=== PATIENT | male | born 1935 ===

== ENCOUNTER 2020-01-12 17:32 | Outpatient (CLI) | payer MEDICARE, SELFPAY ==
[2020-01-12 17:49] LABS: Basophils % 0.3 %; Eosinophils # 0.7 10^3/uL (0.0-0.8); Eosinophils % 7.4 %; Hematocrit 26.4 % (42.0-52.0); Hemoglobin 8.2 g/dL (11.7-16.6); Lymphocytes # 2.9 10^3/uL (0.8-4.8); Mean Corpuscular HGB Conc 31.1 g/dL (30.0-36.0); Mean Corpuscular Hemoglobin 28.5 pg (28.0-34.0); Mean Corpuscular Volume 91.7 fL (80-94); Mean Platelet Volume 11.3 fL (7.4-10.4); Monocytes # 0.8 10^3/uL (0.2-0.9); Monocytes % 8.9 %; Neutrophils # 4.8 10^3/uL (1.8-7.7); Neutrophils % 52.2 %; Nucleated Red Blood Cells % 0 %; Platelet Count 297 10^3/cmm (130-400); Red Blood Count 2.88 10^6/uL (4.1-5.3); Red Cell Distribution Width 16.8 % (12.1-15.1); White Blood Count 9.2 10^3/uL (4.0-10.0)
[2020-01-13 02:00] LABS: Alanine Aminotransferase 11 U/L (0-41); Albumin Level 3.6 g/dL (3.5-5.2); Alkaline Phosphatase 149 IU/L (40-130); Anion Gap 20.7 (5-19); Aspartate Amino Transferase 19 U/L (0-40); Blood Urea Nitrogen 38 mg/dL (8-23); Calcium 9.7 mg/dL (8.5-10.5); Carbon Dioxide 26 mmol/L (22-29); Chloride 97 mmol/L (98-107); Globulin 4.1 g/dL (1.3-4.6); Glucose 118 mg/dL (65-115); NT Pro B Type Natriuretic Pept 2051 pg/mL (0-450); Potassium 5.7 mmol/L (3.5-5.1); Sodium 138 mmol/L (136-145); Total Bilirubin 0.5 mg/dL (0.15-1.2); Total Protein 7.7 g/dL (6.6-8.7)
== END 2020-01-12 17:33 | disposition home or self-care (01) ==
LOC: LAB 17:39
PROVIDERS: Family Provider Nurse Practitioner; PCP Nurse Practitioner; Visit Provider Internal Medicine Medical Oncology
DX: I50.9 Heart failure, unspecified (principal)
CPT/HCPCS: 80053; 83880; 85025

== ENCOUNTER 2020-01-18 14:59 | Outpatient (CLI) | payer MEDICARE, SELFPAY ==
[2020-01-18 16:39] LABS: Basophils % 0.3 %; Eosinophils # 0.6 10^3/uL (0.0-0.8); Eosinophils % 7.2 %; Hematocrit 30.5 % (42.0-52.0); Hemoglobin 9.4 g/dL (11.7-16.6); Lymphocytes # 2.5 10^3/uL (0.8-4.8); Lymphocytes % 29.2 %; Mean Corpuscular HGB Conc 30.8 g/dL (30.0-36.0); Mean Corpuscular Hemoglobin 28.3 pg (28.0-34.0); Mean Corpuscular Volume 91.9 fL (80-94); Mean Platelet Volume 10.7 fL (7.4-10.4); Monocytes # 0.7 10^3/uL (0.2-0.9); Monocytes % 8.5 %; Neutrophils # 4.7 10^3/uL (1.8-7.7); Neutrophils % 54.6 %; Nucleated Red Blood Cells % 0 %; Platelet Count 284 10^3/cmm (130-400); Red Blood Count 3.32 10^6/uL (4.1-5.3); Red Cell Distribution Width 16.7 % (12.1-15.1); White Blood Count 8.7 10^3/uL (4.0-10.0)
[2020-01-18 18:14] LABS: Erythrocyte Sedimentation Rate 76 mm/hr (0-10)
[2020-01-18 18:30] LABS: Ferritin 275 ng/mL (30-400); Iron 56 ug/dL (59-158)
[2020-01-18 18:46] LABS: Vitamin B12 532 pg/mL (232-1245)
[2020-01-18 18:54] LABS: Percent Saturation 23.6 % (20-50); Total Iron Binding Capacity 237 mcg/dl; Unsaturated Iron Binding 181 ug/dL (112-347)
[2020-01-19 08:51] LABS: PROTEIN, TOTAL 7.5 g/dL (6.1-8.1)
[2020-01-19 11:32] LABS: ALBUMIN 3.4 g/dL (3.8-4.8); ALPHA 1 GLOBULIN 0.4 g/dL (0.2-0.3); ALPHA 2 GLOBULIN 1.1 g/dL (0.5-0.9); BETA 1 GLOBULIN 0.4 g/dL (0.4-0.6); BETA 2 GLOBULIN 0.5 g/dL (0.2-0.5); GAMMA GLOBULIN 1.7 g/dL (0.8-1.7)
[2020-01-19 19:10] LABS: KAPPA LIGHT CHAIN, FREE, SERUM 100.2 mg/L (3.3-19.4); LAMBDA LIGHT CHAIN, FREE, SERU 43.5 mg/L (5.7-26.3)
== END 2020-01-18 15:00 | disposition home or self-care (01) ==
LOC: ONCMED 15:02
PROVIDERS: Family Provider Nurse Practitioner; PCP Nurse Practitioner; Visit Provider Internal Medicine Medical Oncology
DX: D50.0 Iron deficiency anemia secondary to blood loss (chronic) (principal); I50.32 Chronic diastolic (congestive) heart failure; I11.0 Hypertensive heart disease with heart failure
CPT/HCPCS: 82607; 82728; 83540; 83550; 83883; 84155; 84165; 85025; 85651

== ENCOUNTER → 2020-04-19 10:36 | Outpatient (BNVA) | payer MEDICARE, SELFPAY | PROVIDERS: Family Provider Nurse Practitioner; PCP Nurse Practitioner; Visit Provider Nurse Practitioner | DX: I10 Essential (primary) hypertension (principal); E11.9 Type 2 diabetes mellitus without complications; K59.01 Slow transit constipation; C61 Malignant neoplasm of prostate; I50.9 Heart failure, unspecified; F41.9 Anxiety disorder, unspecified | CPT/HCPCS: 83036; 85025 ==

== ENCOUNTER 2020-07-15 08:21 | Outpatient (CLI) | payer MEDICARE, SELFPAY ==
--- NOTE | 2020-07-15 08:35 | CT_ITS ---
WS: [id number] CT NECK TECHNIQUE: Contrast-enhanced CT of the neck with coronal and sagittal reformatted images. CLINICAL INFORMATION: LOCALIZED SWELLING, MASS AND LUMP, NECK COMPARISON: None. DLP: 3151.[address] scans at [facility] use at least one of these dose optimization techniques: automat ed exposure control; mA and/or kV adjustment per patient size (includes targeted exams where dose is matched to clinical indication); or iterative reconstruction. FINDINGS: Prior postoperative changes scleral buckling procedure right eye. No evidence of intraorbital infecti on or cellulitis. No evidence of drainable fluid collection or abscess. Images of the tongue base are degraded due to beam hardening artifact from dental hardware. Parotid g lands and submandibular glands are normal. No evidence of supraglottic or glottic mass. Vallecula and piriform sinuses are normal. Normal parapharyngeal fat. No cervical lymphadenopathy. Partially visualized right pleural effusion. Prior sternotomy. Mastoid a ir cells and paranasal sinuses are well aerated. Moderate spondylitic changes cervical spine. Partial ly visualized chronic lacunar infarcts left jackson radiata. CT/CT neck w con* [id number] IMPRESSION: 1. Postoperative changes right scleral buckle procedure. 2. No evidence of intraorbital infection or cellulitis. 3. No evidence of supraglottic or glottic mass. 4. No cervical lymphadenopathy. 5. Partially visualized moderate right pleural effusion. 6. Moderate spondylitic changes cervical spine.
[2020-07-15 09:25] LABS: Blood Urea Nitrogen 19 mg/dL (8-23)
[2020-07-15] MEDS: iodixanol 320 mg/mL 100mL Btl IV (09:51)
== END 2020-07-15 08:22 | disposition home or self-care (01) ==
PROVIDERS: Family Provider Nurse Practitioner; PCP Nurse Practitioner; Visit Provider Specialist
DX: R22.1 Localized swelling, mass and lump, neck (principal); J90 Pleural effusion, not elsewhere classified
CPT/HCPCS: 70491; 82565; 84520; Q9967

== ENCOUNTER → 2020-07-26 09:44 | Outpatient (BNVA) | payer MEDICARE, SELFPAY | PROVIDERS: Family Provider Nurse Practitioner; PCP Nurse Practitioner; Visit Provider Nurse Practitioner | DX: E11.9 Type 2 diabetes mellitus without complications (principal); I10 Essential (primary) hypertension | CPT/HCPCS: 80053; 80061; 83036; 85025 ==

== ENCOUNTER 2020-08-05 10:33 | Emergency (ER) | payer MEDICARE, SELFPAY ==
[2020-08-05 10:41] VITALS: BP 137/85; PULSE 84; RESP 26; TEMP 36.7; O2SAT 91; BMI 33.9
--- NOTE | 2020-08-05 10:43 | XRR_ITS ---
PROCEDURE INFORMATION: Exam: XR Chest, 1 View Exam date and time: 08/05/2020 11:24 AM Age: 84 years old Clinical indication: Shortness of breath. TECHNIQUE: Imaging protocol: XR of the chest Views: 1 view. COMPARISON: CR Chest 1 [place] [id number] 10/23/2019 11:31 AM FINDINGS: Lungs: There is central pulmonary vascular congestion. There is bilateral perihilar haziness with bibasilar airspace disease which could be due to pulmonary edema. Pleural space: Small to moderate size bilateral pleural effusions, not significantly changed. No pneumothorax. Heart/Mediastinum: The cardiac silhouette is enlarged. The mediastinal contours are normal. Prior aortic valve replacement. Bones/joints: Prior median sternotomy. XR/XR chest 1V portable [id number] IMPRESSION: Findings likely due to congestive heart failure, not significantly changed.
--- NOTE | 2020-08-05 10:43 | ECG_ITS ---
[facility] Test Date: 2020-08-05 Pat Name: Chepe Cutler Department: Room: Gender: Male Percher: : 1935 Requested By: Pio Green Order Number: [id number] Jerome MD: Vincent Salazar M.D. Measurements Intervals [place] Rate: 94 P: AL: -1 QRS: -70 QRSD: 170 T: 84 QT: 405 QTc: 507 Interpretive Statements ATRIAL FIBRILLATION WITH ABERRANT CONDUCTION OR VENTRICULAR PREMATURE COMPLEXES RIGHT BUNDLE BRANCH BLOCK [120+ ms QRS DURATION, UPRIGHT V1, 40+ ms S IN I/aVL/V4/V5/V6] LEFT ANTERIOR FASCICULAR BLOCK [QRS AXIS <= -45, QR IN I, RS IN II] WARNING: DATA QUALITY MAY AFFECT INTERPRETATION Compared to ECG 10/23/2019 17:35:01 No significant changes Electronically Signed On 08-05-2020 19:05:34 CDT by Vincent Salazar M.D. [id number] f
[2020-08-05 10:58] LABS: ABG PCO2 43.8 mmHg (35-45); Alveolar-Arterial Oxygen Gradi 5.4 mmHg (5-10); Arterial Blood Gas Hematocrit 28.9 % (42-52); Base Excess ABG 1.8 mmol/L (-2.0-2.0); Blood Gas Allen Test Pos; Blood Gas Operator Identificat CAK; Blood Gas Sample Site Brachial, left; Blood Gas Sample Type Arterial; Carboxyhemoglobin 1.9 %THgb (0.4-20.1); HCO3 ABG 26.9 mmol/L (22-26); Ionized Calcium Level - ABG 1.2 mmol/L (1.1-1.4); Methemoglobin 0.9 % (0.4-1.5); Oxygen Device NC; Oxygen Saturation ABG 89.5; Potassium Level - ABG 3.5 mmol/L (3.5-5.0); Total Hemoglobin 9.4 g/dL (14-18)
--- NOTE | 2020-08-05 11:01 | W.ED.SOB ---
HPI - SOB/Dyspnea General: Chief Complaint: Shortness of Breath/Dyspnea Stated Complaint: SOB Time Seen by Provider: 08/05/20 10:48 History of Present Illness: HPI Narrative: 84-year-old male comes in the last several days he has been short of breath has been progressively worsening he denies any chest pain does have known history of coronary artery disease. He is not had a fever at all but he has had increasing cough. He was seen at an [facility] clinic this morning and his sats were exceptionally low with low 80s they declined ambulance transfer and her transferred via private vehicle. On arrival here his sats are in her low 80s on room air that improved to 88 to 91% with 6 L per nasal cannula. Patient has noted increased swelling in his legs as well. He also has systemic myalgias. Patient can answer some simple questions regarding his condition but any compounding questions involving for example timeframe of new symptoms he is unable to answer appropriately. MD elicited complaint: shortness of breath and cough Pertinent past history: COPD Onset (ago): day(s) Timing: constant Severity: severe Exacerbating factors: exertion, movement and coughing Relieving factors: oxygen, rest and upright position Known history of: congestive heart failure Associated symptoms: Reports chest congestion, cough, lightheadedness and palpitations; Deny chest pain, diaphoresis, dizziness, extremity pain, fever(s), hemoptysis, myalgias, nausea, orthopnea, paresthesias, polydipsia, polyuria, rash, sense of impending doom, syncope or vomiting Treatment prior to arrival: none Review of Systems Const: Denies: fever(s) or diaphoresis ENMT: Denies: throat pain, ear or mastoid pain, nasal discharge or nasal congestion Card: Reports: palpitations and lightheadedness; Denies: chest pain, syncope or orthopnea Resp: Reports: chest congestion; Denies: hemoptysis GI: Denies: nausea or vomiting : Denies: flank pain, dysuria, urinary frequency or urinary urgency Musc: Denies: extremity pain Skin/Breast: Denies: rash or pruritus Neuro: Denies: dizziness Endo: Denies: polyuria or polydipsia PFS ED PFSH: Medical History (Updated 08/05/20 @ 13:45 by Barrett Richter DO) Anxiety ASHD (arteriosclerotic heart disease) Atrial fibrillation CAD (coronary artery disease) CHF (congestive heart failure) Diabetes History of cerebrovascular accident (CVA) with residual deficit difficult swallowing [place] (hard of hearing) HTN (hypertension) Prostate cancer Slow transit constipation Surgical History History of cardioversion S/P AVR (aortic valve replacement) S/P CABG (coronary artery bypass graft) S/P Maze operation for atrial fibrillation Family History Other Diabetes Heart disease Social History Smoking and tobacco status: never smoked Second hand smoke exposure: No Smoking risk assessment/counseling performed?: No Alcohol intake: never Desire information about alcohol rehabilitation?: No Counseling given: No Desire information about substance/drug rehabilitation?: No Counseling given: No Caregiver/support person: Yes Lives independently: No Household members: spouse Housing: House Marital status: Current occupational status: retired Current occupational exposures/hazards: No History of recent travel: No Current gender identity: Male Physical Exam Const: GENERAL APPEARANCE: cooperative, comfortable and lethargic ORIENTATION/CONSCIOUSNESS: Yes awake, Yes confused and Yes lethargic; not oriented to person, not oriented to place and not oriented to time HENMT: COMMON NORMALS: normocephalic and atraumatic; hearing grossly not normal bilaterally HEAD & SCALP: normocephalic and atraumatic Eye: COMMON NORMALS: Equal, round and reactive pupils present, EOMs intact bilaterally, conjunctivae normal and no scleral icterus CONJUNCTIVA: Yes conjunctivae normal PUPIL: Yes Equal, round and reactive pupils present Neck/C-Spine: COMMON NORMALS: full ROM, no lymphadenopathy, supple and no JVD Resp: AUSCULTATION: crackles, wheezes and diminished lung sounds Cardio: COMMON NORMALS: no JVD, regular rate, regular rhythm and No murmurs present (Cardio) RATE: regular rate RHYTHM: regular rhythm GI: COMMON NORMALS: Soft to palpation and No hepatosplenomegaly present AUSCULTATION: Yes normoactive bowel sounds PALPATION: Yes Soft to palpation, No Tenderness to palpation present (GI), No Guarding due to palpation present (GI) and Yes No hepatosplenomegaly present Extremity: COMMON NORMALS: normal to inspection, capillary refill normal, no clubbing, cyanosis or edema, no calf tenderness and no pedal edema Neuro: SENSORIUM/ORIENTATION: No oriented to person, No oriented to place, No oriented to time and Yes lethargic Skin: COMMON NORMALS: no rashes or lesions noted GENERAL SKIN EXAM: no rashes or lesions noted Course Vital Signs: Vital signs: Vital Signs Temperature 98.1 F 08/05/20 10:41 Pulse Rate 84 08/05/20 13:08 Respiratory Rate 21 H 08/05/20 13:08 Blood Pressure 138/74 08/05/20 13:08 Pulse Oximetry 92 08/05/20 13:08 MDM - SOB/Dyspnea MDM Narrative: Medical decision making narrative: Clinically patient appears he does have COVID-19 despite the rapid antigen. At this point I recommend keeping him under isolation until the results are back. Called and reviewed with the family they do not want him admitted will discuss with him that I think he does have treatable issues and could do well. Also discussed that even if he deteriorated they would be allowed to visit him more than our normal visiting hours if we did feel his was imminent. We discussed this because this was the main concern of the family. They still want to take him home AMA the daughter has power of insurance attorney and states she will sign the AMA form she feels that he would be better off at home. She understands it is very likely he will in short order without adequate support. Advised him that we would happily see the patient back if they were to change their mind. Lab Data: Labs: Lab Results 08/05/20 08/05/20 08/05/20 Range/Units 10:47 11:05 11:05 WBC (4.0-10.0) 10^3/ uL RBC (4.1-5.3) 10^6/u L Hgb (11.7-16.6) g/dL Hct (42.0-52.0) % MCV (80-94) fL MCH (28.0-34.0) pg MCHC (30.0-36.0) g/dL RDW (12.1-15.1) % Plt Count (130-400) 10^3/c mm MPV (7.4-10.4) fL Neut % (Auto) % Lymph % (Auto) % Scurry % (Auto) % Eos % (Auto) % Baso % (Auto) % Neut # (Auto) (1.8-7.7) 10^3/u L Lymph # (Auto) (0.8-4.8) 10^3/u L Scurry # (Auto) (0.2-0.9) 10^3/u L Eos # (Auto) (0.0-0.8) 10^3/u L Baso # (Auto) (0.0-0.1) 10^3/u L Nucleated RBC % (a uto) % Nucleated RBCs # /100WBC PT (12.1-14.9) SECO NDS INR (0.8-1.2) Fibrinogen (174-498) mg/dL D-Dimer (0-0.59) ug/mIFE U Specimen Type Arterial Sample Site Brachial, left ABG pH 7.40 (7.35-7.45) ABG pCO2 43.8 (35-45) mmHg ABG pO2 56.0 L (80.0-100.0) mmH g ABG HCO3 26.9 H (22-26) mmol/L ABG O2 Saturation 89.5 ABG Base Excess 1.8 (-2.0-2.0) mmol/ L William Test Pos A-a O2 Gradient 5.4 (5-10) mmHg Hematocrit 28.9 L (42-52) % Hgb O2 Saturation 87.0 L (95-100) % Carboxyhemoglobin 1.9 (0.4-20.1) %THgb Methemoglobin 0.9 (0.4-1.5) % Total Hemoglobin 9.4 L (14-18) g/dL Sodium 140.0 (131-143) mmol/L Potassium 3.5 (3.5-5.0) mmol/L Glucose 147.0 H (70-115) mg/dL Ionized Calcium 1.2 (1.1-1.4) mmol/L O2 Delivery Device Nc O2 Liters/Min 6.0 % Meter/Relay Technician ID Cak Chloride (98-107) mmol/L Carbon Dioxide (22-29) mmol/L Anion Gap (5-19) BUN (8-23) mg/dL Creatinine (0.7-1.2) mg/dL GFR Calculation Calculated Osmolal ity (285-295) mOsm/k g Lactic Acid (0.5-2.2) mmol/L Lactic Acid (Sepsi s) (0.5-2.2) mmol/L Calcium (8.5-10.5) mg/dL Magnesium (1.7-2.3) mg/dL Ferritin (30-400) ng/mL Total Bilirubin (0.15-1.2) mg/dL AST (0-40) U/L ALT (0-41) U/L Alkaline Phosphata se (40-130) IU/L Lactate Dehydrogen ase (135-225) U/L Troponin T Baselin e (0-15) ng/L Troponin T 120 Min [place] (0-15) ng/L Delta Troponin T (0-10) ABS# C-Reactive Protein (0.0-4.9) mg/L NT-Pro-B Natriuret Pep (0-450) pg/mL Total Protein (6.6-8.7) g/dL Albumin (3.5-5.2) g/dL Globulin (1.3-4.6) g/dL Procalcitonin (0-0.5) ng/mL Influenza Type A A g Negative (Negative) Influenza Type B A g Negative (Negative) SARS-CoV-2 Ag (Rap id) Negative (Negative) 08/05/20 08/05/20 08/05/20 Range/Units 11:08 11:08 11:08 WBC 11.1 H (4.0-10.0) 10^3/ uL RBC 3.16 L (4.1-5.3) 10^6/u L Hgb 9.4 L (11.7-16.6) g/dL Hct 31.6 L (42.0-52.0) % MCV 100.0 H (80-94) fL MCH 29.7 (28.0-34.0) pg MCHC 29.7 L (30.0-36.0) g/dL RDW 16.1 H (12.1-15.1) % Plt Count 202 (130-400) 10^3/c mm MPV 9.5 (7.4-10.4) fL Neut % (Auto) 81.0 % Lymph % (Auto) 10.3 % Scurry % (Auto) 6.5 % Eos % (Auto) 1.8 % Baso % (Auto) 0.1 % Neut # (Auto) 9.00 H (1.8-7.7) 10^3/u L Lymph # (Auto) 1.1 (0.8-4.8) 10^3/u L Scurry # (Auto) 0.7 (0.2-0.9) 10^3/u L Eos # (Auto) 0.2 (0.0-0.8) 10^3/u L Baso # (Auto) 0.0 (0.0-0.1) 10^3/u L Nucleated RBC % (a uto) 0 % Nucleated RBCs # 0.0 /100WBC PT 14.80 (12.1-14.9) SECO NDS INR 1.13 (0.8-1.2) Fibrinogen (174-498) mg/dL D-Dimer 3.09 H (0-0.59) ug/mIFE U Specimen Type Sample Site ABG pH (7.35-7.45) ABG pCO2 (35-45) mmHg ABG pO2 (80.0-100.0) mmH g ABG HCO3 (22-26) mmol/L ABG O2 Saturation ABG Base Excess (-2.0-2.0) mmol/ L William Test A-a O2 Gradient (5-10) mmHg Hematocrit (42-52) % Hgb O2 Saturation (95-100) % Carboxyhemoglobin (0.4-20.1) %THgb Methemoglobin (0.4-1.5) % Total Hemoglobin (14-18) g/dL Sodium 137 (131-143) mmol/L Potassium 3.7 (3.5-5.0) mmol/L Glucose 151 H (70-115) mg/dL Ionized Calcium (1.1-1.4) mmol/L O2 Delivery Device O2 Liters/Min % Meter/Relay Technician ID Chloride 99 (98-107) mmol/L Carbon Dioxide 22 (22-29) mmol/L Anion Gap 19.7 H (5-19) BUN 29 H (8-23) mg/dL Creatinine 1.2 (0.7-1.2) mg/dL GFR Calculation Not Reportable Calculated Osmolal ity 293 (285-295) mOsm/k g Lactic Acid (0.5-2.2) mmol/L Lactic Acid (Sepsi s) (0.5-2.2) mmol/L Calcium 8.6 (8.5-10.5) mg/dL Magnesium 2.0 (1.7-2.3) mg/dL Ferritin (30-400) ng/mL Total Bilirubin 1.2 (0.15-1.2) mg/dL AST 17 (0-40) U/L ALT 12 (0-41) U/L Alkaline Phosphata se 112 (40-130) IU/L Lactate Dehydrogen ase (135-225) U/L Troponin T Baselin e (0-15) ng/L Troponin T 120 Min [place] (0-15) ng/L Delta Troponin T (0-10) ABS# C-Reactive Protein 130.8 H (0.0-4.9) mg/L NT-Pro-B Natriuret Pep 3710 H (0-450) pg/mL Total Protein 7.7 (6.6-8.7) g/dL Albumin 3.5 (3.5-5.2) g/dL Globulin 4.2 (1.3-4.6) g/dL Procalcitonin 1.67 H (0-0.5) ng/mL Influenza Type A A g (Negative) Influenza Type B A g (Negative) SARS-CoV-2 Ag (Rap id) (Negative) 08/05/20 08/05/20 08/05/20 Range/Units 11:08 11:08 11:08 WBC (4.0-10.0) 10^3/ uL RBC (4.1-5.3) 10^6/u L Hgb (11.7-16.6) g/dL Hct (42.0-52.0) % MCV (80-94) fL MCH (28.0-34.0) pg MCHC (30.0-36.0) g/dL RDW (12.1-15.1) % Plt Count (130-400) 10^3/c mm MPV (7.4-10.4) fL Neut % (Auto) % Lymph % (Auto) % [place] % (Auto) % Eos % (Auto) % Baso % (Auto) % Neut # (Auto) (1.8-7.7) 10^3/u L Lymph # (Auto) (0.8-4.8) 10^3/u L Scurry # (Auto) (0.2-0.9) 10^3/u L Eos # (Auto) (0.0-0.8) 10^3/u L Baso # (Auto) (0.0-0.1) 10^3/u L Nucleated RBC % (a uto) % Nucleated RBCs # /100WBC PT (12.1-14.9) SECO NDS INR (0.8-1.2) Fibrinogen 546 H (174-498) mg/dL D-Dimer (0-0.59) ug/mIFE U Specimen Type Sample Site ABG pH (7.35-7.45) ABG pCO2 (35-45) mmHg ABG pO2 (80.0-100.0) mmH g ABG HCO3 (22-26) mmol/L ABG O2 Saturation ABG Base Excess (-2.0-2.0) mmol/ L William Test A-a O2 Gradient (5-10) mmHg Hematocrit (42-52) % Hgb O2 Saturation (95-100) % Carboxyhemoglobin (0.4-20.1) %THgb Methemoglobin (0.4-1.5) % Total Hemoglobin (14-18) g/dL Sodium (131-143) mmol/L Potassium (3.5-5.0) mmol/L Glucose (70-115) mg/dL Ionized Calcium (1.1-1.4) mmol/L O2 Delivery Device O2 Liters/Min % Meter/Relay Technician ID Chloride (98-107) mmol/L Carbon Dioxide (22-29) mmol/L Anion Gap (5-19) BUN (8-23) mg/dL Creatinine (0.7-1.2) mg/dL GFR Calculation Calculated Osmolal ity (285-295) mOsm/k g Lactic Acid 2.1 (0.5-2.2) mmol/L Lactic Acid (Sepsi s) (0.5-2.2) mmol/L Calcium (8.5-10.5) mg/dL Magnesium (1.7-2.3) mg/dL Ferritin (30-400) ng/mL Total Bilirubin (0.15-1.2) mg/dL AST (0-40) U/L ALT (0-41) U/L Alkaline Phosphata se (40-130) IU/L Lactate Dehydrogen ase (135-225) U/L Troponin T Baselin e 95 H (0-15) ng/L Troponin T 120 Min [place] (0-15) ng/L Delta Troponin T (0-10) ABS# C-Reactive Protein (0.0-4.9) mg/L NT-Pro-B Natriuret Pep (0-450) pg/mL Total Protein (6.6-8.7) g/dL Albumin (3.5-5.2) g/dL Globulin (1.3-4.6) g/dL Procalcitonin (0-0.5) ng/mL Influenza Type A A g (Negative) Influenza Type B A g (Negative) SARS-CoV-2 Ag (Rap id) (Negative) 08/05/20 08/05/20 08/05/20 Range/Units 11:08 13:05 13:05 WBC (4.0-10.0) 10^3/ uL RBC (4.1-5.3) 10^6/u L Hgb (11.7-16.6) g/dL Hct (42.0-52.0) % MCV (80-94) fL MCH (28.0-34.0) pg MCHC (30.0-36.0) g/dL RDW (12.1-15.1) % Plt Count (130-400) 10^3/c mm MPV (7.4-10.4) fL Neut % (Auto) % Lymph % (Auto) % [place] % (Auto) % Eos % (Auto) % Baso % (Auto) % Neut # (Auto) (1.8-7.7) 10^3/u L Lymph # (Auto) (0.8-4.8) 10^3/u L Scurry # (Auto) (0.2-0.9) 10^3/u L Eos # (Auto) (0.0-0.8) 10^3/u L Baso # (Auto) (0.0-0.1) 10^3/u L Nucleated RBC % (a uto) % Nucleated RBCs # /100WBC PT (12.1-14.9) SECO NDS INR (0.8-1.2) Fibrinogen (174-498) mg/dL D-Dimer (0-0.59) ug/mIFE U Specimen Type Sample Site ABG pH (7.35-7.45) ABG pCO2 (35-45) mmHg ABG pO2 (80.0-100.0) mmH g ABG HCO3 (22-26) mmol/L ABG O2 Saturation ABG Base Excess (-2.0-2.0) mmol/ L William Test A-a O2 Gradient (5-10) mmHg Hematocrit (42-52) % Hgb O2 Saturation (95-100) % Carboxyhemoglobin (0.4-20.1) %THgb Methemoglobin (0.4-1.5) % Total Hemoglobin (14-18) g/dL Sodium (131-143) mmol/L Potassium (3.5-5.0) mmol/L Glucose (70-115) mg/dL Ionized Calcium (1.1-1.4) mmol/L O2 Delivery Device O2 Liters/Min % Meter/Relay Technician ID Chloride (98-107) mmol/L Carbon Dioxide (22-29) mmol/L Anion Gap (5-19) BUN (8-23) mg/dL Creatinine (0.7-1.2) mg/dL GFR Calculation Calculated Osmolal ity (285-295) mOsm/k g Lactic Acid (0.5-2.2) mmol/L Lactic Acid (Sepsi s) 1.3 (0.5-2.2) mmol/L Calcium (8.5-10.5) mg/dL Magnesium (1.7-2.3) mg/dL Ferritin 276 (30-400) ng/mL Total Bilirubin (0.15-1.2) mg/dL AST (0-40) U/L ALT (0-41) U/L Alkaline Phosphata se (40-130) IU/L Lactate Dehydrogen ase 207 (135-225) U/L Troponin T Baselin e (0-15) ng/L Troponin T 120 Min [place] 89.94 H (0-15) ng/L Delta Troponin T -5.06 L (0-10) ABS# C-Reactive Protein (0.0-4.9) mg/L NT-Pro-B Natriuret Pep (0-450) pg/mL Total Protein (6.6-8.7) g/dL Albumin (3.5-5.2) g/dL Globulin (1.3-4.6) g/dL Procalcitonin (0-0.5) ng/mL Influenza Type A A g (Negative) Influenza Type B A g (Negative) SARS-CoV-2 Ag (Rap id) (Negative) Discharge Plan Discharge Patient Disposition: Left Against Medical Advice Clinical Impression: Suspected 2019-nCoV infection, Diabetes, Congestive heart failure (CHF) Condition: Stable Prescriptions: No Action aspirin [Aspir-81] 81 mg tablet,delayed release (DR/EC) 81 mg PO DAILY RF: 0 amlodipine [Norvasc] 10 mg tablet 10 mg PO DAILY Qty: 90 RF: 0 atorvastatin 40 mg tablet 40 mg PO DAILY Qty: 90 RF: 0 escitalopram oxalate [Lexapro] 10 mg tablet 10 mg PO DAILY Qty: 90 RF: 0 metformin 500 mg tablet extended release 24 hr 500 mg PO BID Qty: 180 RF: 0 metoprolol succinate 25 mg tablet extended release 24 hr 75 mg PO DAILY Qty: 270 RF: 0 risperidone [Risperdal] 0.5 mg tablet 0.5 mg PO DAILY Qty: 90 RF: 0 Senna Plus 8.6-50 mg capsule 2 tab-cap PO BID Qty: 120 RF: 2 tamsulosin 0.4 mg capsule 0.4 mg PO DAILY Qty: 90 RF: 0 (DME) bed side commode See Rx Instructions .Route .MEDSUPPLY Qty: 1 RF: 0 (DME) oxygen concentrator See Rx Instructions .Route .MEDSUPPLY Qty: 1 RF: 0 furosemide 20 mg tablet 20 mg PO DAILY Qty: 90 RF: 0 ferrous sulfate 325 mg (65 mg iron) tablet 325 mg PO DAILY Qty: 90 RF: 0 Referrals: Mike Wing FNP-C [Primary Care Provider] - Activity Restrictions/Additional Instructions: You have elected to leave AMA. Is been explained to you that without adequate support may be eminent. You are welcome to return at any point if you wish. Discharge Date/Time: 08/05/20 14:00 Coding Level of Care Code ED Larder Cook for Chg Fwd Exam Comprehensive
[2020-08-05 11:17] VITALS: O2SAT 93
[2020-08-05 11:18] LABS: Basophils % 0.1 %; Eosinophils # 0.2 10^3/uL (0.0-0.8); Eosinophils % 1.8 %; Hematocrit 31.6 % (42.0-52.0); Hemoglobin 9.4 g/dL (11.7-16.6); Lymphocytes # 1.1 10^3/uL (0.8-4.8); Lymphocytes % 10.3 %; Mean Corpuscular HGB Conc 29.7 g/dL (30.0-36.0); Mean Corpuscular Hemoglobin 29.7 pg (28.0-34.0); Mean Platelet Volume 9.5 fL (7.4-10.4); Monocytes # 0.7 10^3/uL (0.2-0.9); Monocytes % 6.5 %; Nucleated Red Blood Cells % 0 %; Platelet Count 202 10^3/cmm (130-400); Red Blood Count 3.16 10^6/uL (4.1-5.3); Red Cell Distribution Width 16.1 % (12.1-15.1); White Blood Count 11.1 10^3/uL (4.0-10.0)
[2020-08-05] MEDS: FUROsemide 10 mg/mL SDV 10mL 60 MG IVP (11:28)
[2020-08-05 11:41] LABS: INR 1.13 (0.8-1.2)
[2020-08-05 11:42] LABS: Lactic Sepsis W/Reflex 2.1 mmol/L (0.5-2.2)
[2020-08-05 11:44] LABS: D Dimer 3.09 ug/mIFEU (0-0.59); Troponin(5th) Baseline 95 ng/L (0-15)
[2020-08-05 11:52] LABS: NT Pro B Type Natriuretic Pept 3710 pg/mL (0-450); Procalcitonin 1.67 ng/mL (0-0.5)
[2020-08-05 11:53] LABS: Influenza A by IFA Negative (Negative); Influenza B by IFA Negative (Negative); SARS Covid-2 Antigen Negative (Negative)
[2020-08-05 12:03] LABS: Alanine Aminotransferase 12 U/L (0-41); Albumin Level 3.5 g/dL (3.5-5.2); Alkaline Phosphatase 112 IU/L (40-130); Anion Gap 19.7 (5-19); Aspartate Amino Transferase 17 U/L (0-40); Blood Urea Nitrogen 29 mg/dL (8-23); C Reactive Protein 130.8 mg/L (0.0-4.9); Calcium 8.6 mg/dL (8.5-10.5); Carbon Dioxide 22 mmol/L (22-29); Chloride 99 mmol/L (98-107); Globulin 4.2 g/dL (1.3-4.6); Glucose 151 mg/dL (65-115); Osmolality Calculated 293 mOsm/kg (285-295); Potassium 3.7 mmol/L (3.5-5.1); Sodium 137 mmol/L (136-145); Total Bilirubin 1.2 mg/dL (0.15-1.2); Total Protein 7.7 g/dL (6.6-8.7)
[2020-08-05 12:04] VITALS: BP 123/71; PULSE 79; RESP 21; O2SAT 92
--- NOTE | 2020-08-05 12:08 | CT_ITS ---
WS: [id number] CTA OF THE CHEST WITH PULMONARY EMBOLISM PROTOCOL TECHNIQUE: High-resolution contrast enhanced CTA of the chest with coronal and sagittal reformatted i mages with pulmonary embolism protocol. MIP images are also reviewed. CLINICAL INFORMATION: dyspnea COMPARISON: CTA October 23, 2019 DLP: 579.[address] scans at [facility] use at least one of these dose optimization techniques: automat ed exposure control; mA and/or kV adjustment per patient size (includes targeted exams where dose is matched to clinical indication); or iterative reconstruction. FINDINGS: Some images degraded by breathing motion. Proximal main pulmonary arteries are normal. Segmental and subsegmental pulmonary arteries appear nor mal where visualized. No evidence of pulmonary embolus. Small to moderate right and small left pleural effusions with compressive atelectasis in the lung bas es. Bilateral hazy groundglass infiltrates worse in the mid and lower lungs. Coronary calcification. Reactive anterior mediastinal lymph nodes. No axillary lymphadenopathy. Adrenal glands are normal. Mild thoracic kyphosis with hypertrophic changes thoracic spine. Anterior wedging in the mid thoracic spine. Sternotomy. CT/CT angio chest PE protcl [id number] IMPRESSION: 1. No evidence of pulmonary embolus. 2. Small to moderate right and small left pleural effusions with compressive a telectasis in the lung bases. 3. Hazy groundglass infiltrates in the mid and lower lungs bilaterally. 4. Sternotomy. Vascular calcification. 5. Cardiomegaly. Notified Barrett Richter DO at 08/05/2020 1:00 PM.
[2020-08-05 12:20] LABS: Fibrinogen 546 mg/dL (174-498)
--- NOTE | 2020-08-05 12:41 | PC.NURSE ---
pt to ct by stretcher with tech
--- NOTE | 2020-08-05 12:43 | ECG_ITS ---
[facility] Test Date: 2020-08-05 Pat Name: Chepe Cutler Department: Room: Gender: Male Recovery Room Nurse: ALEXEY: 1935 Requested By: Pio Green Order Number: [id number] Jerome MD: Vincent Salazar M.D. Measurements Intervals [place] Rate: 81 P: DC: -1 QRS: -63 QRSD: 159 T: 70 QT: 422 QTc: 492 Interpretive Statements ATRIAL FIBRILLATION WITH ABERRANT CONDUCTION OR VENTRICULAR PREMATURE COMPLEXES RIGHT BUNDLE BRANCH BLOCK [120+ ms QRS DURATION, UPRIGHT V1, 40+ ms S IN I/aVL/V4/V5/V6] LEFT ANTERIOR FASCICULAR BLOCK [QRS AXIS <= -45, QR IN I, RS IN II] Compared to ECG 08/05/2020 10:48:56 No significant changes Electronically Signed On 08-05-2020 19:36:22 CDT by Vincent Salazar M.D. [id number] f
[2020-08-05 12:45] LABS: Ferritin 276 ng/mL (30-400); Lactate Dehydrogenase 207 U/L (135-225)
[2020-08-05] MEDS: iodixanol 320 mg/mL 100mL Btl IV (12:50)
[2020-08-05 13:00] LABS: Reflex Lactate Order REFLEX LACTIC ORDERD
[2020-08-05] MEDS: levofloxacin-dextrose 5 % 750 MG/150 ML PREMIX 100 MG IV (13:00)
[2020-08-05 13:08] VITALS: BP 138/74; PULSE 84; RESP 21; O2SAT 92
[2020-08-05 13:36] LABS: Lactic Acid level (Lactate) 1.3 mmol/L (0.5-2.2); Troponin 5 2HR 89.94 ng/L (0-15)
[2020-08-05 13:50] LABS: Troponin 5 2HR Delta -5.06 ABS# (0-10)
--- NOTE | 2020-08-05 15:11 | DCPLANNER ---
build manager was asked to make a referral to hospice with [facility]. Dr. Richter made a referral to hospice with [facility]. build manager called Davy with [facility] to make sure that she received the referral, bottle caser was told that the referral had been received, and that she would be calling the family.
[2020-08-06 20:14] LABS: Coronavirus Lab Test PTC Negative
--- NOTE | 2020-08-09 09:51 | DCPLANNER ---
resolution manager called [facility] to confirm that patient had been set up on Hospice. resolution manager spoke with Davy, was told that patient had been set up with services.
== END 2020-08-05 14:00 | disposition left against medical advice (07) ==
PROVIDERS: Nurse Practitioner Family; Emergency Provider Family Medicine; PCP Nurse Practitioner
DX: E11.9 Type 2 diabetes mellitus without complications (principal); I11.0 Hypertensive heart disease with heart failure; I50.9 Heart failure, unspecified; Z79.82 Long term (current) use of aspirin; Z53.21 Procedure and treatment not carried out due to patient leaving prior to being seen by health care provider; I48.91 Unspecified atrial fibrillation; I25.10 Atherosclerotic heart disease of native coronary artery without angina pectoris; Z86.73 Personal history of transient ischemic attack (TIA), and cerebral infarction without residual deficits; Z85.46 Personal history of malignant neoplasm of prostate; Z95.1 Presence of aortocoronary bypass graft
CPT/HCPCS: 12345; 36415; 36600; 71045; 71275; 80051; 80053; 82728; 82810; 83605; 83615; 83735; 83880; 83986; 84145; 84484; 85025; 85378; 85384; 85610; 86140; 87040; 87426; 87635; 87804; 93005; 96365; 96366; 96375; 99283; 99284; J1940; J1956; Q9967